=== PATIENT | female | born 2000 | race Caucasian/White ===

== ENCOUNTER 2018-03-16 06:15 | Day surgery (SDC) | payer SELFPAY ==
[2018-03-15 12:57] VITALS: BMI 20.3
[2018-03-16] MEDS ORDERED: fentaNYL CITRATE 250 MCG/5 ML VIAL ONE (07:47)
[2018-03-16] MEDS ORDERED: PROPOFOL 20 ML ONE ×5 (07:47→10:30)
[2018-03-16] MEDS ORDERED: ROCURONIUM BROMIDE 50 MG/5 ML VIAL ONE (07:47)
[2018-03-16] MEDS ORDERED: MIDAZOLAM HCL 2 MG/2 ML SINGLE DOSE VIAL ONE ×2 (07:48)
[2018-03-16] MEDS ORDERED: SCOPOLAMINE HYDROBROMIDE 1 PATCH PATCH.TD72 ONE (07:59)
[2018-03-16] MEDS ORDERED: ceFAZolin SODIUM 1 GM VIAL ONE ×2 (08:16→12:20)
[2018-03-16] MEDS ORDERED: ceFAZolin SODIUM 1 GM VIAL IVPB ONE (08:18)
[2018-03-16] MEDS ORDERED: DESFLURANE GAS 240 ML BOTTLE IH ONE (09:04)
[2018-03-16] MEDS ORDERED: ONDANSETRON 4 MG/2 ML VIAL IVPUSH PRN (09:47)
[2018-03-16] MEDS ORDERED: PROMETHAZINE HCL 25 MG/1 ML VIAL IVPUSH PRN (09:47)
[2018-03-16] MEDS ORDERED: oxyCODONE HCL 5 MG TABLET PO PRN (09:47)
[2018-03-16] MEDS ORDERED: ACETAMINOPHEN INJECTION 100 ML IVPB ONE (09:50)
[2018-03-16] MEDS ORDERED: LACTATED RINGERS SOLUTION 1,000 ML IV SCH (10:00)
--- NOTE | 2018-03-16 11:30 | OP ---
Operative Note - Note: Operative Date: 03/16/18 Pre-Operative Diagnosis: MACROMASTIA Operation: BILATERAL REDUCTION MAMMAPLASTY Findings: ASYMMETRY WITH LEFT LARGER THAN RIGHT Surgeon: Marvel Stratton Anesthesiologist/STAMPING DIE MAKER: Markie Garcia Anesthesia: General Specimens Removed: BILATERAL BREAST TISSUE. RIGHT-331 GMS. LEFT-556 GMS Estimated Blood Loss (mls): 50 Drains & Tubes with Location: 2 FABY DRAINS WITH SAFETY PINS
[2018-03-16] MEDS ORDERED: oxyCODONE HCL 5 MG TABLET ONE (14:07)
[2018-03-16 16:43] VITALS: BP 96/60; PULSE 78; TEMP 97.9
--- NOTE | 2018-03-19 17:37 | PATH ---
Surgical Pathology Report Patient Name: NORBERTO CARPENTER [facility]. Rec. #: [id number] /Age/Gender: 2000 (Age: 17) / F Account: [id number] Location: [facility] SURGICAL Taken: 03/16/2018 Received: 03/16/2018 Reported: 03/19/2018 Physicians: Marvel Stratton Specimen(s) Received A: RIGHT BREAST TISSUE B: LEFT BREAST TISSUE Clinical History Macromastia Final Diagnosis A. BREAST, RIGHT, REDUCTION MAMMOPLASTY: BENIGN BREAST TISSUE WITH STROMAL FIBROSIS. SKIN WITHOUT SIGNIFICANT PATHOLOGIC FINDINGS. B. BREAST, LEFT, REDUCTION MAMMOPLASTY: BENIGN BREAST TISSUE WITH STROMAL FIBROSIS. SKIN WITHOUT SIGNIFICANT PATHOLOGIC FINDINGS. Electronically Signed Callie Laird M.D. Gross Description A. Received in formalin labeled "right breast tissue" is a 327 g, 12.5 x 12.0 x 5.5 cm aggregate of multiple portions of fibroadipose tissue and massey, unremarkable skin. Sectioning reveals abundant dense, white, firm fibrous tissue. No definitive mass is identified. Boom Pump Operator sections are submitted in 4 cassettes. B. Received in formalin labeled "left breast tissue," is a 558 g, 14.0 x 12.5 x 7.5 cm aggregate of multiple portions of fibroadipose tissue and massey, unremarkable skin. Sectioning reveals abundant dense, white, firm fibrous tissue. No definitive mass is identified. Boom Pump Operator sections are submitted in 4 cassettes. /03/18/2018 saudi03/18/2018
--- NOTE | 2018-03-27 07:41 | OP ---
DATE OF OPERATION: 03/16/2018 SURGEON: Artem Stratton MD PREOPERATIVE DIAGNOSIS: Bilateral macromastia with asymmetry. POSTOPERATIVE DIAGNOSIS: Bilateral macromastia with asymmetry. OPERATIVE PROCEDURE: Bilateral reduction mammoplasty with correction of asymmetry. OPERATIVE INDICATIONS: The patient is a young girl who has significant asymmetry of her right and left breasts, with the left breast being significantly larger and more ptotic. The risks and benefits, surgical versus nonsurgical alternatives, as well as material complications of the procedure were described to the patient and her family on multiple occasions preoperatively. She agreed to the planned procedure, totally understood the scars which are subsequent to the procedure, and had a good understanding of the risks and benefits. All questions were asked and answered OPERATIVE PROCEDURE IN DETAIL: Patient was taken to the operating room, and after the induction of general anesthesia in the supine position, both arms were extended and padded. Venodyne boots were placed. Then, the markings, which had been made in the standing position preoperatively for reduction mammoplasty with asymmetry, were carried out. The left breast was significantly larger and required a larger reduction. Subsequently, a larger scar in a Schmidt shaped pattern. At this point, after placement of sterile drapes in the usual fashion and time-out, 1% local lidocaine anesthesia was infiltrated into the breasts for hemostasis and pain control. At this point, incisions were made according to the patterns and deepithelialized using a glandular inferior pedicle technique on the right breast. Then, 331 g of tissue were removed from the right breast and saved on the side. The exact same procedure symmetrically was carried out on the left breast except for the larger incisions and greater resection. Then, 556 g of tissue were removed from the left breast. At this point, the wounds were tailor-tacked and closed. The patient was sat into the sitting position for comparison of symmetry and showed good size and shape contour. Copious irrigation was performed, and hemostasis was meticulously obtained throughout the procedure. The wounds were then advanced, and closed upon themselves using 2-0 Vicryl suture on the deep pedicle, 2-0 on the deep dermis fashion, 3-0 Biosyn in subcutaneous fashion, and then, a subcuticular suture running with a 4-0 V-Loc suture. The nipple areolar complex was reinset into its new position. Good symmetry was seen on both sides. Dermabond and Steri-Strips were placed over the wounds, and the patient was placed into a Surgi-Bra. She tolerated the procedure well. She was awakened, extubated, and transferred to the recovery room in satisfactory condition. ARTEM STRATTON M.D. EDUAR/[id number]
== END 2018-03-16 16:30 | disposition home or self-care (01) ==
LOC: JASU-SURG 06:15
PROVIDERS: ATTEND Plastic Surgery
PROC: 0H0V0ZZ Alteration of Bilateral Breast, Open Approach (ICD-10-PCS; principal; 2018-03-16 08:00)
DX: N62 Hypertrophy of breast (principal)
CPT/HCPCS: 36415; 84702; 94760; J0131